=== PATIENT | male | born 1960 | race Caucasian/White ===

== ENCOUNTER → 2019-11-08 | Outpatient (CLI) | payer OTHER ==
[2019-10-26 10:47] VITALS: BP 137/80
[~2019-11-08] MED LIST: CURC10PO MC; HYDR12.58 PO; PANT40TA77 PO; TURM538C PO
== END | disposition home or self-care (01) ==
LOC: LAB 13:31
PROVIDERS: ATTEND Internal Medicine Gastroenterology
DX: Z01.812 Encounter for preprocedural laboratory examination (principal); Z20.828 Contact with and (suspected) exposure to other viral communicable diseases
CPT/HCPCS: U0003-CS

== ENCOUNTER → 2019-11-12 | Day surgery (SDC) | payer OTHER ==
[~2019-11-12] MED LIST changes: +GLYCOPYRROLATE 1 MG/5 ML VIAL. ONE; +IV RINGERS,LACTATED 1000ML 1,000 ML IV SCH; +LIDOCAINE 2% PF 5 ML VIAL. ONE; +PROPOFOL 10 MG/ML (20ML) VIAL. IV ONE; +ePHEDrine PF IN SALINE 50 MG/10 ML SYRINGE. IV ONE
--- NOTE | 2019-11-12 12:54 | PDOC1 ---
History and Physical Date of Admission Date of Admission DATE: 11/12/19 TIME: 12:48 Identification/Chief Complaint Chief Complaint Colon cancer screening. Source Source: Chart review, Patient History of Present Illness History of Present Illness 59 y/o male here for CRC screening; no prior. No lower GI symptoms. Just here for variceal bleed; banded. 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 No other GI history. Past Medical History Past Medical History Otherwise negative. Past Surgical History Past Surgical History: Hernia Repair (ventral), Tonsillectomy, Other (finger reattachment after trauma) Family History Family History: Cancer (esophageal/brother) Social History Smoke: <1 pack per day ALCOHOL: heavy Drugs: None Current Medications Current Medications Current Medications Ringer's Solution 1,000 ml @ 75 mls/hr [id number] IV ; Start 11/12/19 at 12:15; Stop 11/13/19 at 12:14 Ringer's Solution 1,000 ml @ 50 mls/hr Q20H IV ; Start 11/12/19 at 12:46; Stop 11/13/19 at 00:45; Status UNV Active Scripts Active Reported Curcumin 10 Gm Powder 10 Gm MC DAILY Turmeric (Turmeric Root Extract) 538 Mg Capsule 538 Mg PO DAILY Hydrochlorothiazide Tablet (Hydrochlorothiazide) 12.5 Mg Tablet 25 Mg PO DAILY Pantoprazole Sodium (Pantoprazole Sodium) 40 Mg Tablet.dr 40 Mg PO DAILYAC Allergies Allergies: Coded Allergies: No Known Drug Allergies (Unverified , 11/12/19) ROS Review of System Otherwise negative. Physical Exam General: Alert, Oriented X3, Cooperative, No acute distress HEENT: Atraumatic, PERRLA, EOMI Heart: S1S2, RRR, no gallops, no murmurs Abdomen: Normal bowel sounds, Soft, No tenderness, No hepatosplenomegaly, No masses, Other (obese) Rectal Exam: deferred Extremities: No clubbing, No edema Skin: No significant lesion Neuro: Normal speech, Strength at 5/5 X4 ext, Normal tone, Sensation intact, Cranial nerves 3-12 NL, Reflexes 2+ Psych/Mental Status: Mental status NL, Mood NL Vitals Vitals Vital Signs Date Time Temp Pulse Resp B/P (MAP) Pulse Ox O2 Delivery O2 Flow Rate FiO2 11/12/19 11:45 97 83 20 65 97.0 VTE Prophylaxis Ordered VTE Prophylaxis Devices: Contraindicated VTE Pharmacological Prophylaxi: Contraindicated Assessment/Plan Assessment/Plan IMP: Average risk for colon cancer/screen PLAN: Colonoscopy NIKOLE BOWEN MD Nov 12, 2019 12:54
--- NOTE | 2019-11-12 13:36 | PDOC4 ---
PROCEDURE Procedure Colonoscopy with polypectomy Ind: screening Meds: per anesthesia Findings: MATHEUS normal. Scope advanced to cecum. Prep adequate. Mucosa normal. Scattered diverticula sigmoid into transverse. 2, 4-8 mm polyps in mid/proximal transverse removed with cold snare/biopsy respectively. Clip placed after larger polyp. 10-12 mm pedunculated polyp sigmoid, snared. Internal hemorrhoids on retroflex. Earlene. well. IMP: polyps diverticulosis hemorrhoids. REC: No ASA, NSAIDS for 2 weeks. Await path. F/u in my office in 2 weeks. Repeat exam pending path. NIKOLE BOWEN MD Nov 12, 2019 13:36
[2019-11-12 13:52] VITALS: BP 129/59
--- NOTE | 2019-11-14 16:07 | PATHOLOGY ---
[facility] Accession Number: [id number] . 01 Material submitted: . PART A: colon - TRANSVERSE COLON POLYPS. Modifiers: transverse PART B: sigmoid colon - SIGMOID COLON POLYP . 01 Clinical history: . SCREENING . 02 Diagnosis: A. Colon biopsies, transverse colon polyps: - Tubular adenomas (2). . B. Colon biopsy, sigmoid colon polyp: - Mixed hyperplastic/adenomatous polyp, chronically inflamed. ([facility] 11/14/2019) [facility] 11/14/2019 0859 Local . 02 Comment: There is no high-grade dysplasia or evidence of malignancy. ([facility] 11/14/2019) . 02 Electronically signed: . Damien Bolivar MD, Pathologist NPI- [id number] . 01 Gross description: . A. The specimen is received in formalin, labeled "Peter Liza, transverse colon polyps". Received are four segments of pale barreto soft tissue ranging in size from 0.3 to 0.6 cm in maximum dimensions. The specimen is submitted entirely in cassette A1. . B. The specimen is received in formalin, labeled "Peter Liza, sigmoid colon polyp". Received is a segment of red-brown soft tissue measuring 1.2 x 1.0 x 0.6 cm in greatest dimensions. The surgical margin is inked. The specimen is trisected and entirely submitted in cassette B1. ([facility]; 11/13/2019) [facility] 11/13/2019 1710 Local . 02 Pathologist provided ICD-10: D12.3, K63.5 . 02 CPT . 472956, 656150 Specimen Comment: A courtesy copy of this report has been sent to [phone] Specimen Comment: Report sent to Performed at: [address] [facility] [address], [place], [place] [id number] MD Miguel Colvin MD Phone: [phone] Performed at: [address] [facility] [id number] MD Damien Bolivar MD Phone: [phone]
== END | disposition home or self-care (01) ==
LOC: ENDOS 10:55
PROVIDERS: ATTEND Internal Medicine Gastroenterology
DX: Z12.11 Encounter for screening for malignant neoplasm of colon (principal); D12.3 Benign neoplasm of transverse colon; K64.8 Other hemorrhoids; K57.30 Diverticulosis of large intestine without perforation or abscess without bleeding; F17.210 Nicotine dependence, cigarettes, uncomplicated; Z79.899 Other long term (current) drug therapy
CPT/HCPCS: 45385; 88305; J2704; J3490; 45384

== ENCOUNTER → 2019-12-06 | Outpatient (CLI) | payer OTHER ==
[2019-11-12 13:52] VITALS: BP 129/59
[~2019-12-06] MED LIST changes: -GLYCOPYRROLATE 1 MG/5 ML VIAL. ONE; -IV RINGERS,LACTATED 1000ML 1,000 ML IV SCH; -LIDOCAINE 2% PF 5 ML VIAL. ONE; -PROPOFOL 10 MG/ML (20ML) VIAL. IV ONE; -ePHEDrine PF IN SALINE 50 MG/10 ML SYRINGE. IV ONE
== END ==
LOC: LAB 13:08
PROVIDERS: ATTEND Internal Medicine Gastroenterology
DX: Z01.812 Encounter for preprocedural laboratory examination (principal); I83.90 Asymptomatic varicose veins of unspecified lower extremity; Z20.828 Contact with and (suspected) exposure to other viral communicable diseases
CPT/HCPCS: U0003-CS

== ENCOUNTER → 2019-12-10 | Day surgery (SDC) | payer OTHER ==
[~2019-12-10] MED LIST changes: +IV RINGERS,LACTATED 1000ML 1,000 ML IV SCH; +LIDOCAINE 2% PF 5 ML VIAL. ONE; +PROPOFOL 10 MG/ML (20ML) VIAL. IV ONE
--- NOTE | 2019-12-10 15:27 | PDOC4 ---
PROCEDURE Procedure EGD/banding varices Indication: Known varices with recent bleed. Meds: per anesthesia Findings: E--Probable Spear's 25-35cm. Not biopsied. 3, grade 2-3 varices distally, 2 with red jhoan sign. All 3 banded. G--Normal D--Normal to second. Earlene. well. IMP: Varices, banded. Probable Spear's, not biopsied as varices in proximity. REC: Liquid diet for 2 days. Resume other meds. Repeat exam in 4-6 weeks. NIKOLE BOWEN MD Dec 10, 2019 15:27
[2019-12-10 15:55] VITALS: BP 148/67
== END ==
LOC: ENDOS 13:09
PROVIDERS: ATTEND Internal Medicine Gastroenterology
DX: K22.8 Other specified diseases of esophagus (principal); I85.00 Esophageal varices without bleeding; Z87.891 Personal history of nicotine dependence; Z79.899 Other long term (current) drug therapy
CPT/HCPCS: 43244; J2704